=== PATIENT | female | born 1940 | race Caucasian/White ===

== ENCOUNTER 2016-05-21 16:50 | Inpatient (IN) | payer MEDICARE ==
[~2016-05-21] VITALS: Ht 160 cm; Wt 56.1 kg
--- NOTE | ~2016-05-21 | HEMODYNAMI ---
PATIENT:BRIJESH HAYES MEDICAL RECORD: [id number] : 36 [id number] ADMISSION DATE: 05/22/16 Generatedon:05/23/201612:37 Patient name: BRIJESH HAYES Patient #: [id number] : 1940 Date of study: 05/23/2016 Page: Of Hemodynamic Procedure Report Patient Data Patient Demographics Procedure consent was obtained First Name: BRIJESH Gender: Female Last Name: FREDDY : 1940 Patient #: [id number] Age: 75 year(s) Race: Unknown SSN: [id number] Additional ID: [id number] Contact details [address]: [address] [place] [address] [facility] State: [place] City: [place] Zip code: [address] Past Medical History Allergies Allergen Reaction Date Comments Reported Other allergy 05/23/2016 Trazadone Admission Admission Data Admission Date: 05/22/2016 Admission Time: 19:22 Arrival Date: 05/23/2016 Arrival Time: 0:00 Admit Source: Other Room #: D.2120 Height (in.): 62.99 BSA: 1.58 (m2) Height (cm.): 160 BMI: 21.88 (kg/m2) Weight (lbs.): 123.46 Weight (kg.): 56 Lab Results Lab Result Date: 05/23/2016 Lab Result Time: 0:00 Biochemistry Name Units Result Min Max BUN mg/dl 17 --(---*)-- 7 18 Creatinine mg/dl 1 --(--*-)-- 0.6 1.3 CBC Name Units Result Min Max Hemoglobin g/dl 15.8 --(--*-)-- 13.5 17.5 Procedure Procedure Types Cath Procedure Diagnostic Procedure LHC LHC w/Coronaries PCI Procedure Coronary Stent Initial x2 Miscellaneous Procedures Moderate Sedation up to 15 minutes Procedure Description Procedure Date Procedure Date: 05/23/2016 Procedure Start Time: 12:10 Procedure End Time: 12:36 Procedure Staff Name Function Harry Wahsburn MD Performing Physician Odilia Godoy RT Scrub Matteo Sanford RN Nurse Matteo Sanford RN Soa Integration Architect Angie Joel RT Monitor Procedure Data Cath Procedure Fluoroscopy Diagnostic fluoroscopy Total fluoroscopy Time: 9.3 time: 9.3 min min Diagnostic fluoroscopy Total fluoroscopy dose: 479 dose: 479 mGy mGy Contrast Material Contrast Material Type Amount (ml) Isovue 300 124 Entry Location Entry Primary Successful Side Size Upsize Upsize Entry Closure Kincaid ccessful Closure Location (Fr) 1 (Fr) 2 (Fr) Remarks Device Remarks Radial Right 6 Fr Mechanical TR artery Short Compression Estimated blood loss: 10 ml Diagnostic catheters Device Type Used For End Catheter Placement Terumo 5Fr Stockbridge 110cm Procedure catheter Procedure Complications No complications Procedure Medications Medication Administration Route Dosage Oxygen NC 2 l/min Lidocaine 2% added to field 20 Heparin Flush Bag added to field 2 bags (1000units/500ml NS) 0.9% NaCl I.V. 100 ml/hr Fentanyl I.V. 25 mcg Fentanyl I.V. 25 mcg Radial Cocktail I.A. 1 syringe (Verapomil 2mg/Nitro 400mcg/Heparin 1500units) Heparin Bolus I.V. 4000 units Integrilin (Bolus I.V. 5 ml 2mg/ml) Hemodynamics Rest BSA: 1.58 (m2) HGB: 15.8 (g/dl) O2 Consumption: Estimated: 159.54 (ml/min) O2 Co nsumption indexed: Estimated:100.97 (ml/min/m) Heart Rate: 98 (bpm) Snapshots Pre Cath Intra NCS Post Cath Vital Signs Time Heart Resp SPO2 etCO2 LD0xnfq NIBP (mmHg) Rhythm Pain Sedation Rate (ipm) (%) (mmHg) (mmHg) Status Level (bpm) 11:51:57 94 94 94 0 0 140/87(113) NSR 0 (11) 9(A) , No pain 11:56:07 97 25 94 0 0 146/81(119) NSR 0 (11) 9(A) , No pain 12:00:17 95 29 95 0 0 146/89(116) NSR 0 (11) 9(A) , No pain 12:04:29 93 26 96 0 0 138/81(113) NSR 0 (11) 9(A) , No pain 12:08:39 93 24 97 0 0 134/79(108) NSR 0 (11) 9(A) , No pain 12:12:51 92 24 98 0 0 122/68(94) NSR 0 (11) 9(A) , No pain 12:16:57 90 19 96 0 0 128/76(97) NSR 0 (11) 9(A) , No pain 12:21:06 89 21 97 0 0 124/72(95) NSR 0 (11) 9(A) , No pain 12:25:12 88 21 97 0 0 127/75(99) NSR 0 (11) 9(A) , No pain 12:29:20 88 21 97 0 0 126/74(95) NSR 0 (11) 9(A) , No pain 12:33:27 88 22 96 0 0 132/78(103) NSR 0 (11) 9(A) , No pain Medications Time Medication Route Dose Verified Delivered Reason Note s Effectiveness by by 12:00:32 Oxygen NC 2 l/min Harry Felipe used for Wu Sanford RN procedure 12:00:38 Lidocaine 2% added 20ml Harry Mcdonald for local to vial Wu Washburn MD anesthetic field 12:00:44 Heparin Flush added 2 bags Harry Mcdonald used for Bag to Wu Washburn MD procedure (1000units/500ml field NS) 12:00:54 0.9% NaCl I.V. 100 Harry Felipe Per physician ml/hr Wu Sanford RN 12:09:43 Fentanyl I.V. 25 mcg Harry Felipe for sedation Wu Sanford RN 12:13:03 Fentanyl I.V. 25 mcg Harry Felipe for sedation Wu Sanford RN 12:13:17 Radial Cocktail I.A. 1 Harry Mcdonald for (Verapomil syringe Wu Washburn MD vasodilation 2mg/Nitro 400mcg/Heparin 1500units) 12:15:41 Heparin Bolus I.V. 4000 Harry Felipe for veri fied units Wu Sanford RN anticoagulation with dr washburn 12:24:34 Integrilin I.V. 5 ml Harry Felipe for Wast ed 5 (Bolus 2mg/ml) Wu Sanford RN antiplatelet mls from therapy vial Procedure Log Time Note 11::52 Lab Result : BUN 17 mg/dl 11::52 Lab Result : Hemoglobin 15.8 g/dl ::52 Lab Result : Creatinine 1 mg/dl 11:32:09 Admit Source: Other 11:32:13 Patient Weight : 123.46 kg 11:32:22 Patient Height : 62.99 cm 11:32:39 Patient diabetic? Yes. 11:32:41 If diabetic: On Metformin? No 11:32:44 Is patient on blood thinner?Yes 11:32:47 ACC The patient was administered the following blood thiners within the last 24 hours: ACCPlavix 11:33:19 Diagnostic Cath status Elective 11:33:21 Matteo Sanford RN sent for patient. Start room use. 11:33:23 Time tracking: Regular hours ::31 Plan of Care:Hemodynamics will remain stable., Cardiac rhythm will remain stable., Comfort level will be maintained., Respiratory function will remain adequate., Patient/ family verbilizes understanding of procedure., Procedure tolerated without complication., Recovers from procedure without complications.. 11:33:57 H&P Date Dictated: 05/22/2016 Within 30 days and on chart.. 11:35:19 Arrival Date: 05/23/2016 12:00:00 AM 11:44:48 Patient received from Med II to CCL 1 Alert and oriented. Tansferred to table in Supine position. 11:44:49 Warm blankets applied, and evangelina hugger turned on for patient comfort. 11:44:50 Correct patient and procedure confirmed by team. 11:44:51 Signed procedure consent form obtained from patient. 11:44:52 ECG and BP/O2 sat monitors applied to patient. 11:50:28 Vital chart was started 11:50:29 Baseline sample Acquired. 11:50:39 Pre-procedure instructions explained to patient. 11:50:39 Pre-op teaching completed and patient verbalized understanding. 11:50:40 Family in waiting room. 11:50:42 Patient NPO since Midnight. 11:50:55 Patient allergic to Other allergyTrazadone 11:51:03 Is the patient allergic to Iodine/contrast media? No. 11:51:06 Was the patient premedicated? No 11:51:25 Previous problem with sedation/anesthesia? No ? 11:51:28 Snore? Yes 11:51:30 Sleep apnea? No 11:51:31 Deviated septum? No 11:51:32 Opens mouth fully? Yes 11:51:32 Sticks out tongue? Yes 11:51:48 Airway obstruction? Yes copd 11:51:53 Dentures? No ? 11:51:58 Pre procedure: right dorsailis pedis pulse 1+ Palpable, but thready & weak; easily obliterated 11:52:00 Patient pain scale 0/10 ?. 11:52:20 IV patent on arrival in right antecubital with 0.9% NaCl at [facility]. 11:52:24 Lab results completed and on chart. 11:52:29 Right groin area was prepped with chlora-prep and draped in sterile fashion 11:52:30 Alarms reviewed by R. N. 11:52:31 Sharps counted by scrub and verified by R.N. 11:53:07 Baseline sample Acquired. 12:00:32 Oxygen 2 l/min NC was given by Matteo Sanford RN; used for procedure; 12:00:38 Lidocaine 2% 20ml vial added to field was given by Harry Washburn MD; for local anesthetic; 12:00:44 Heparin Flush Bag (1000units/500ml NS) 2 bags added to field was given by Harry Washburn MD; used for procedure; 12:00:54 0.9% NaCl 100 ml/hr I.V. was given by Matteo Sanford RN; Per physician; 12:01:25 Physician arrived 12:02:18 Baseline sample Acquired. 12:02:51 IV Extension Set opened to sterile field. 12:02:59 Full Disclosure recording started 12:03:14 Use device set Radial Dx 12:03:16 Acist Syringe opened to sterile field. 12:03:16 Medline Cath Pack opened to sterile field. 12:03:17 Bag Decanter opened to sterile field. 12:03:17 Terumo 6Fr Slender Glidesheath opened to sterile field. 12:03:17 St Leonel 260cm J .035 wire opened to sterile field. 12:03:18 Acist Hand Control opened to sterile field. 12:03:18 Acist Manifold opened to sterile field. 12:03:19 Tegaderm 4 x 4 opened to sterile field. 12:07:38 Zero performed for pressure channel P1 12:08:00 ACC Patient presents with Symptoms unlikely to be ischemic CCS Anginal Class 3--Marked limitation of physical activity, angina occurs with ordinary activity.. 12:08:43 --------ALL STOP TIME OUT------ 12:08:46 Final Timeout: patient, procedure, and site verified with staff and physician. All members of the team are in agreement. 12:08:50 Right Radial & Right Groin site verified by team. 12:08:57 Physical assessment completed. ASA score P 3 - A patient with severe systemic disease as per Harry Washburn MD. 12:09:02 Sedation plan: IV Moderate Sedation Versed, Fentanyl 12::43 Fentanyl 25 mcg I.V. was given by Matteo Sanford RN; for sedation; 12:10:30 Procedure started. 12:10:36 Local anesthetic to right radial artery with Lidocaine 2% by Harry Washburn MD.INITIAL ACCESS ONLY 12:11:45 A 6 Fr Short sheath was inserted into the Right Radial artery 12:12:28 A Previstar 5Fr Stockbridge 110cm catheter was advanced over the wire and used for Procedure. 12:12:41 LV angiography performed. 12:13:03 Fentanyl 25 mcg I.V. was given by Matteo Sanford RN; for sedation; 12:13:04 EF : 30 % 12:13:10 LCA angiography performed. 12:13:17 Radial Cocktail (Verapomil 2mg/Nitro 400mcg/Heparin 1500units) 1 syringe I.A. was given by Harry Washburn MD; for vasodilation; 12:14:48 RCA angiography performed. 12:14:52 Catheter removed. 12:14:54 Proceeding to intervention. 12:14:57 Merit BasixCompak Inflation Kit opened to sterile field. 12:15:00 Alcaraz Whisper J 300cm 0.014 guide wire opened to sterile field. 12:15:13 ACC PCI Site: mLAD has 99% stenosis. 12:15:41 Heparin Bolus 4000 units I.V. was given by Matteo Sanford RN; for anticoagulation; verified with dr washburn 12:16:24 6 Fr EBU4 guide catheter was inserted over the wire 12:16:35 Whisper wire advanced. 12:16:37 Wire advanced across lesion. 12:18:03 Inflation Number: 1 A Alcaraz Ultra Rx 5.0 x 18 stent was prepped and advanced across the LMCA. The stent was deployed at 11 FATMATA for 0:10 (min:sec). 12:19:49 Stent catheter was removed intact over wire. 12:21:58 Inflation number: 1 A Enfield Sci Bent 2.5 X 15 balloon was prepped and advanced across the Mid LAD, then inflated to 13 FATMATA for 0:10 (min:sec). 12:22:08 Balloon removed over the wire. 12:24:34 Integrilin (Bolus 2mg/ml) 5 ml I.V. was given by Matteo Sanford RN; for antiplatelet therapy; Wasted 5 mls from vial 12:24:58 Stent catheter was removed intact over wire. 12:25:03 Balloon re-inserted over wire. 12:26:09 Inflation number: 2 The Enfield Sci Bent 2.5 X 15 balloon was reinflated across the Mid LAD, to 17 FATMATA for 0:10 (min:sec). 12:26:33 Inflation number: 3 The Enfield Sci Bent 2.5 X 15 balloon was reinflated across the Mid LAD, to 17 FATMATA for 0:10 (min:sec). 12:28:15 Balloon removed over the wire. 12:28:40 Inflation Number: 4 A Christ Salvationtronic Integrity 2.5 X 18 stent was prepped and advanced across the Mid LAD. The stent was deployed at 17 FATMATA for 0:10 (min:sec). 12:29:27 Wire removed. 12:29:28 Guide catheter removed. 12:32:50 Terumo TR Band Standard opened to sterile field. 12:33:11 Sheath removed intact; hemostasis achieved with Mechanical Compression to the Right Radial artery. 12:33:14 Procedure ended.(Physican Out) 12:33:47 Fluoroscopy time 09.30 minutes. 12:33:57 Fluoroscopy dose: 479 mGy 12:33:57 Flurop Dose total: 479 12:34:20 Contrast amount:Isovue 300 124ml. 12:34:23 Sharps counted by scrub and verified by R.N. 12:34:28 TR band inflated with 13cc of air. 12:34:30 Insertion/operative site no bleeding no hematoma. 12:34:43 Post right radial artery:stable 12:34:51 Post Procedure Pulses reassessed and unchanged 12:34:56 Post-procedure physical assessment completed. ASA score P 3 - A patient with severe systemic disease as per Harry Washburn MD. 12:35:01 Post procedure rhythm: unchanged. 12:35:06 Estimated blood loss: 10 ml 12:35:08 Post procedure instruction explained to patient.Patient verbalizes understanding. 12:35:13 Patient needs reinforcement of post procedure teaching. 12:35:26 Procedure type changed to Cath procedure, Diagnostic procedure, LHC, LHC w/Coronaries, PCI procedure, Coronary Stent Initial x2, Miscellaneous Procedures, Moderate Sedation up to 15 minutes 12:35:27 Procedure and supply charges have been captured, reviewed, submitted and are correct. 12:36:25 Procedure Complication : No complications 12:36:28 Vital chart was stopped 12:36:29 See physician's report for complete and final results. 12:36:33 Report given to [facility]. 12:36:37 Patient transfered to [facility] with Bed. 12:36:40 Procedure ended. 12:36:40 Full Disclosure recording stopped 12:36:43 End room use (Document Last) Intervention Summary Intervention Notes Time ActionType Lesion and Equipment Action# Pressure Duration Attributes Used 12:18:03 Place stent LMCA Alcaraz 1 11 00:10 Ultra Rx 5.0 x 18 stent 12:21:58 Inflate Mid LAD Enfield 1 13 00:10 balloon Sci Bent 2.5 X 15 balloon 12:26:09 Reinflate Mid LAD Enfield 2 17 00:10 balloon Sci Bent 2.5 X 15 balloon 12:26:33 Reinflate Mid LAD Enfield 3 17 00:10 balloon Sci Bent 2.5 X 15 balloon 12:28:40 [address] stent Mid LAD Medtronic 4 17 00:10 Integrity 2.5 X 18 stent Device Usage Item Name Manufacture Quantity Catalog Number Hospital Part Current Mini mal Lot# / Charge Number Stock Stock Serial# Code IV Hospcopper harbor 1 47499-08 955400 12277 201857 5 Extension Set Acist Acist 1 11127 936014 172030 492369 20 Syringe Medical Systems Inc Medline Cardinal 1 [id number] 966976 55959 046025 5 Cath Pack Health Bag Microtek 1 528696 17548 362936 5 Mobiotics Inc. Terumo 6Fr Terumo 1 [id number] 238237 539712 963580 [address] Le[address] St Leonel 1 049312 089867 115777 463047 30 260cm J .035 wire Acist Hand Acist 1 99195 706826 121893 198912 5 Control Medical Systems Inc Acist Acist 1 05003 676141 851487 292276 5 Manifold Medical Systems Inc Tegaderm 4 3M 1 1626W 566905 435416 466750 5 x 4 Terumo 5Fr Terumo 1 40-5013 323813 334625 832505 5 Stockbridge 110cm catheter Merit Merit 1 [id number] 921171 864986 039193 15 BasixCompak Medical Inflation Kit Alcaraz Alcaraz 1 [id number] 270357 748390 223923 5 Whisper J Vascular 300cm 0.014 guide wire Alcaraz Alcaraz 1 0130023-81 132231 568738 001994 5 [id number] Ultra Rx Vascular 5.0 x 18 stent Enfield Sci Enfield 1 [id number] 664321 406881 382093 1 [id number] ClearTax 2.5 X 15 balloon Medtronic Medtronic 1 [id number] 071436 418777 599864 5 [id number] Integrity 2.5 X 18 stent Terumo TR Terumo 1 [id number] 609836 707371 893716 40 Band Standard Signature Audit [place] Stage Time Signature Unsigned Intra-Procedure 05/23/2016 Angie Joel 12:37:11 PM RT(R) Signatures Monitor : Angie Joel Signature : RT Date : Time : [facility] [address] [place] [address]
[~2016-05-21 16:50] MED LIST: ADVAIR HFA [SP]12 GM INH; ALTACE5 MG PO; ASPIRIN81 MG PO; ATIVAN0.5 MG PO; BUSPAR5 MG PO; CITRATE OF MAG300 ML PO; CYMBALTA60 MG PO; DESYREL50 MG PO; DETROL LA4 MG PO; DUONEB 2.5-0.5 M3 ML UPD; GLUCOPHAGE500 MG PO; IPRAT-ALBUT 0.5-3 ML UPD; ISOSORBIDE DINI30 MG PO; KEPPRA250 MG PO; LANOXIN125 MCG PO; LEVAQUIN500 MG PO; MAG-OX 400 MG400 MG PO; METAMUCIL PACKE1 PKT PO; METOPROLOL TART50 MG PO; MILK OF MAGNESI30 ML PO; MIRALAX17 GM PO; MYLANTA LIQUID355 ML PO; NITROSTAT0.4 MG SL; NORCO 5/325 TAB1 TA1 PO; ONGLYZA5 MG PO; PHENERGAN25 M1 PO; PHOS-NAK PAC1 PACKET PO; PLAVIX75 MG PO; PRILOSEC20 MG PO; PROTONIX20 MG PO; REMERON15 MG PO; SPIRIVA18 MCG INH; SYMBICORT 16010.2 GM INH; TUDORZA PRESS400 MCG IH; TYLENOL 325 MG325 MG PO; VENTOLIN HFA18 GM INH; VITAMIN D3400 UNI1 PO; ZOCOR40 MG PO
[2016-05-21 18:08] LABS: BASOPHILS 0.4 % (0.0-2.0); EOSINOPHILS 1.5 % (0-7); HEMATOCRIT 45.7 % (36.0-48.0); HEMOGLOBIN 14.7 g/dL (12-16); IMMATURE GRANULOCYTES 0.3 % (0-5); LYMPHOCYTES 17.1 % (15-50); MCH 28.5 pg (26.0-34.0); MCHC 32.2 g/dL (31.0-37.0); MCV 88.6 fL (80.0-100.0); MEAN PLATELET VOLUME 10.1 fL (7.4-10.4); MONOCYTES 2.6 % (2-11); NEUTROPHILS 78.1 % (40-80); PLATELET COUNT 147 10x3/uL (130-400); RBC 5.16 10x6/uL (4.00-5.40); RDW 14.9 % (11.5-14.5); WBC 11.3 10x3/uL (4.8-10.8)
[2016-05-21 18:23] LABS: ALBUMIN 3.4 g/dL (3.4-5.0); ALKALINE PHOSPHATASE 75 U/L (46-116); ALT (SGPT) 67 U/L (10-68); BILIRUBIN - TOTAL 0.28 mg/dL (0.2-1.3); CALC OSMOLALITY 297 mosm/kg (275-300); CALCIUM 8.9 mg/dL (8.5-10.1); CARBON DIOXIDE 32.1 mmol/L (21.0-32.0); CHLORIDE - SERUM 104 mmol/L (98-107); CREATININE - SERUM 1.1 mg/dL (0.6-1.3); POTASSIUM - SERUM 4.8 mmol/L (3.5-5.1); PROTEIN - SERUM 7.2 g/dL (6.4-8.2); SODIUM 142 mmol/L (136-145); UREA NITROGEN 20 mg/dL (7-18); eGFR NON AFRICAN AMERICAN 51 mL/min (90-120)
[2016-05-21 18:24] LABS: GLUCOSE 314 mg/dL (74-106)
[2016-05-21 18:39] LABS: CHOL - HDL RATIO 4.3 ratio (2.3-4.1); CHOLESTEROL, TOTAL 159 mg/dL (0-200); CREATINE KINASE 282 UL (21-215); HDL CHOLESTEROL 37 mg/dL (32-96); LDL CHOLESTEROL 69 mg/dL (0-100); LDL-HDL RATIO 1.9 ratio (1.5-3.5); TRIGLYCERIDE 265 mg/dL (30-200); TROPONIN-I 2.642 ng/mL (0.000-0.060)
[2016-05-21 20:15] VITALS: BP 169/95
[2016-05-21 22:05] VITALS: BP 169/95; BMI 22.5
[2016-05-21] MEDS ORDERED: AMBIEN5 MG PO (22:41)
[2016-05-21] MEDS ORDERED: BUSPAR5 MG PO (22:42)
[2016-05-21] MEDS ORDERED: GLUCAGEN1 MG/VIAL IM (22:46)
--- NOTE | 2016-05-21 23:11 | NUR ---
PT ARRIVED VIA STRETCHER WIT DX NONSTEMI CT. PT DENIED ANY DISCOMFORT. SR PER CM HR 99. O2 2LNC. IV TO RAC SL. LUNGS DIMINISHED IN BASES BILAT. PT ALERT; ORIENTED TO PERSON, PLACE AND TIME. PEDRO. BED ALARM ON. ASSISTED PT TO BR. VOIDED SMALL AMOUNT OT URINE. ASSISTED BACK TO BED. PT UNSTEADY ON FEET. BED ALARM ON. PM MEDS GIVEN. ADMISSION ASSESSMENT, HISTORY AND HOME MED LIST COMPLETED. PT CURRENTLY RESTING WITH EYES CLOSED. RESP EVEN AND REGULAR. SR UP X2,CALL LIGHT WITHIN REACH AND BED ALARM ON. DOOR OPEN PER PT REQUEST.
[2016-05-22] VITALS (7 sets, daily range): BP systolic 118–198; BP diastolic 61–99
--- NOTE | 2016-05-22 00:55 | NUR ---
SHOTBLAST EQUIPMENT OPERATOR AT BEDSIDE FOR VS, NEEDS ADDRESSED. CALL LIGHT IN REACH. WILL CONT TO MONITOR.
--- NOTE | 2016-05-22 03:03 | NUR ---
PT RESTING WITH EYES CLOSED. RESP EVEN AND REGULAR. SR UP X2, CALL LIGHT WITHIN REACH. BED ALARM ON.
--- NOTE | 2016-05-22 04:12 | NUR ---
PT HAS C/O NOT FEELING WELL. VSS. HOB PLACED TO 40 DEGRESS. PT THEN STATES IT WAS EASIER TO BREATHE. SKIN SLIGHTLY CLAMMY. PT ALSO HAS C/O CHEST DISCOMFORT. REFUSES IV MORPHINE. WILL CONTINUE TO MONITOR. SR UP X2, CALL LIGHT WITHIN REACH AND BED ALARM ON.
--- NOTE | 2016-05-22 04:47 | NUR ---
PT STATES FEELS NAUSEATED. SKIN CLAMMY TO TOUCH. FSBS 191. PT DECLINES MORPHNE AND ZOFRAN AT THIS TIME. WILL CONTINUE TO MONITOR.
--- NOTE | 2016-05-22 06:06 | NUR ---
PT ALLOWED THIS STAFF MEMBER TO ADMINISTER ZOFRAN 4MG, MORPHINE 2MG SIVP. PT NOW STATES FEELS A LITTLE BETTER. NEEDS MET; WILL CONTINUE TO MONITOR.
[2016-05-22 13:36] LABS: BASOPHILS 0.3 % (0.0-2.0); EOSINOPHILS 0.2 % (0-7); HEMATOCRIT 49.6 % (36.0-48.0); HEMOGLOBIN 15.8 g/dL (12-16); IMMATURE GRANULOCYTES 0.2 % (0-5); LYMPHOCYTES 15.9 % (15-50); MCH 28.8 pg (26.0-34.0); MCHC 31.9 g/dL (31.0-37.0); MCV 90.3 fL (80.0-100.0); MEAN PLATELET VOLUME 10.3 fL (7.4-10.4); MONOCYTES 6.8 % (2-11); NEUTROPHILS 76.6 % (40-80); PLATELET COUNT 154 10x3/uL (130-400); RBC 5.49 10x6/uL (4.00-5.40); RDW 15.2 % (11.5-14.5); WBC 13.5 10x3/uL (4.8-10.8)
[2016-05-22 13:45] LABS: ANION GAP 12.5 mmol/L (8-16); CALCIUM 9.3 mg/dL (8.5-10.1); POTASSIUM - SERUM 4.5 mmol/L (3.5-5.1)
--- NOTE | 2016-05-22 16:48 | NUR ---
FSBS 284 HUMALOG 6 UNITS GIVEN SQ ABD
--- NOTE | 2016-05-22 19:11 | NUR ---
Patient Name: BRIJESH HAYES Admission Status: ER Accout number: [id number] Admission Date: 05-21-2016 : 1940 Admission Diagnosis: NSTEMI Attending: DENIS Current LOS: 1 Anticipated DC Date: 05-24-2016 Planned Disposition: [facility] Facility Primary Insurance: MEDICARE A & B Discharge Planning Comments: Patient resting and cm could not get patient to answer questions. CM called and spoke to patients daughter Suki Doyle who stated patient resides at [facility] and will return there at discharge. CM will assist with dc back to [facility] as needed. Treasury Assistant: La Tripathi RN, [facility] [phone] Is the patient Alert and Oriented? No 0 * How many steps to enter\exit or inside your home? 0 0 * PCP Snf Physician 0 * Pharmacy Snf Pharmacy 0 * Preadmission Environment [facility] Facility 0 * Facility Name [facility] 0 * ADLs Partial Dependent 0 * Partial ADLs (Assistance needed) Bathing Medication Management Toileting 0 * List name and contact numbers for known caregivers / representatives who currently or will assist patient after discharge: Suki Doyle - daughter - [phone] 0 * Community resources currently utilized None 0 * Additional services required to return to the preadmission environment? No 0 * Can the patient safely return to the preadmission environment? Yes 0 * Has this patient been hospitalized within the prior 30 days at any hospital? No
--- NOTE | 2016-05-22 19:15 | NUR ---
INITIAL ROUNDS MADE. PT RESTING WELL WITH EYES CLOSED, AWAKENED EASILY WHEN NAME CALLED. TELE SR. DENIES NEEDS AT THIS TIME. WILL CONT TO MONITOR.
--- NOTE | 2016-05-22 22:35 | NUR ---
WATCHING TV. NO NEEDS AT THIS TIME. CONT TO MONITOR.
--- NOTE | 2016-05-23 01:30 | NUR ---
PT INCONT URINE, COMPLETE LINEN CHANGE AND BED BATH COMPLETE.
--- NOTE | 2016-05-23 03:26 | NUR ---
LEVEL VIAL INSIDE GRINDER AT BEDSIDE FOR VS. NEEDS ADDRESSED, CALL LIGHT IN REACH. WILL CONT TO MONITOR.
[2016-05-23 03:49] VITALS: BP 135/66
--- NOTE | 2016-05-23 06:10 | NUR ---
LINEN CHANGE AND BATH COMPLETE, HIBICLENS FOR [facility] THIS AM.
[2016-05-23 08:17] VITALS: BP 182/82
--- NOTE | 2016-05-23 09:19 | NUR ---
TELEMETRY ST. HR 101. BED ALRM ON. CALL LIGHT IN REACH. WILL CONT. PLAN OF CARE.
--- NOTE | 2016-05-23 10:09 | CN ---
PATIENT NAME:BRIJESH HAYES MEDICAL RECORD: [id number] : [birth year] LOCATION:D. D.2120 ADMIT DATE: 05/22/16 ACCOUNT: [id number] CONSULTING PHYSICIAN: MIKO STEWART MD REFERRING PHYSICIAN: MIKO STEWART MD DATE OF CONSULTATION: 05/22/2016 DIAGNOSES: 1. Non-Q-wave myocardial infarction. 2. Coronary artery disease. 3. Previous percutaneous transluminal coronary angioplasty stent. 4. Hypertension. 5. Chronic obstructive pulmonary disease. 6. Cardiomyopathy. 7. Smoking history. 8. Hypertension. 9. History of colon cancer. HISTORY OF PRESENT ILLNESS: Mrs. Hayes presents from the halfway with chest pain. She is ruled in for a non-Q-wave myocardial infarction with her troponin being 2.0. She has ST-T abnormalities laterally in her EKG. She has a history of coronary artery disease, previous cardiac stent a number of years ago. She has done well from a cardiac standpoint until just the day of admission, that is when she began having chest pain. She had chest pain last night as well. She is pain free right now. PHYSICAL EXAMINATION: GENERAL APPEARANCE: Well-nourished, well-developed, appears stated age. Level of distress, comfortable. PSYCHIATRIC: Mental status, alert, normal affect. Orientation, oriented to time, place and person. EYES: Lids and conjunctiva, noninjected. No discharge, no pallor. ENT: Lips, teeth, gums, normal dentition. Oropharynx, no cyanosis, no pallor. NECK: Carotid arteries, bilateral normal upstroke, no bruits, no thrills. JUGULAR VEINS: No jugular venous pressure or distention. CERVICAL LYMPH NODES: Nontender, nonenlarged. THYROID: Not enlarged. Nontender. No nodules. LUNGS: Respiratory effort, unlabored. CHEST: Normal curvature. No thoracic deformity. No chest wall tenderness. Percussion, resonant. Auscultation, clear. No wheezes, no rales, no rhonchi. CARDIOVASCULAR: Precordial exam, nondisplaced. No heaves or pericardial thrills. Rate and rhythm, regular. Heart sounds, normal S1, normal S2. No S3, no gallop, no rub. Systolic murmur, not heard. Diastolic murmur, not heard. EXTREMITIES: No cyanosis, no edema. Peripheral pulses, full and equal in all extremities, except as noted. No bruits appreciated. ABDOMEN: Soft, nondistended. Normal aorta. No bruit. Nontender. No masses. Liver, nontender, no hepatomegaly. Spleen, nontender, no splenomegaly. MUSCULOSKELETAL: No joint tenderness. No joint swelling. No erythema. NEUROLOGICAL: Normal gait, normal strength, normal tone. SKIN: Warm and dry. REVIEW OF SYSTEMS: The patient reports easy bruising but reports no swollen glands. The patient reports no fever, no night sweats, no significant weight gain, no significant weight loss. No significant exercise tolerance. The patient reports no dry eyes, no irritation, no vision change. Patient reports CONSULT REPORT [id number] BRIJESH HAYES no difficulty hearing and no ear pain. Patient reports no frequent nose bleeds or nose and sinus problems. Patient reports on arm pain on exertion. No shortness of breath while lying down. No history of heart murmur. Patient reports no cough, no wheezing or coughing up blood. Patient reports no abdominal pain, no vomiting. Normal appetite. No diarrhea and not vomiting blood. No nausea and no constipation. Patient reports no incontinence. No difficulty urinating. No hematuria. No increased frequency. Patient reports no muscle aches. No weakness, no arthralgias, no back pain. No swelling of the extremities. Patient reports no abnormal mole, no jaundice, no rashes. Reports no loss of consciousness. No weakness and no numbness. No seizures, dizziness, or headaches. The patient reports no depression, no sleep disturbance, feeling safe in a relationship and no alcohol abuse. Patient reports on fatigue. Reports no runny nose or sinus pressure. No itching, no hives, and no frequent sneezing. OVERALL IMPRESSION: Non-Q-wave myocardial infarction with continued chest pain. At this time, we will optimize medical management with increasing her beta blockade. Continue statin. Continue aspirin, Plavix, most likely proceed with coronary angiography in the a.m. Further care depends upon findings of the angiography. TRANSINT:[id number] Voice Confirmation ID: [id number] DOCUMENT ID: [id number] MIKO STEWART MD at 1009 CC: [id number] DICTATION DATE: 05/22/16 1227 STEREO COMPILER: 05/22/16 1520 ADM IN [facility] [address] [place] [address]
--- NOTE | 2016-05-23 11:51 | NUR ---
PRE-OPS GIVEN. TO DRAMATIC READER BY BED.
[2016-05-23 12:31] VITALS: BP 137/70
--- NOTE | 2016-05-23 12:58 | NUR ---
BACK FROM HONEYCOMB DECAPPER. VS WNL. RIGHT WRIST STABLE WITH TR BAND INTACT. MISAEL RG.
[2016-05-23 13:49] VITALS: Ht 160 cm; Wt 56.1 kg
[2016-05-23 15:55] VITALS: BP 147/83
--- NOTE | 2016-05-23 18:35 | NUR ---
TR BAND DCD WITHOUT BLEEDING OR HEMATOMA NOTED.
--- NOTE | 2016-05-23 19:15 | NUR ---
INITIAL ROUNDS MADE. PT LYING IN BED RESTING WELL WITH EYES CLOSED, AWAKENS EASILY WHEN NAME CALLED. DENIES NEEDS AT THIS TIME. RIGHT WRIST STABLE. VSS. CONT TO MONITOR.
[2016-05-23 20:00] VITALS: BP 155/74
[2016-05-24] VITALS: BP 129/63
--- NOTE | 2016-05-24 00:26 | NUR ---
HEAD SILVERMAN AT BEDSIDE FOR VS, NEEDS ADDRESSED. CALL LIGHT IN REACH. WILL CONT TO MONITOR.
[2016-05-24 04:00] VITALS: BP 122/62
[2016-05-24 08:08] VITALS: BP 144/70
--- NOTE | 2016-05-24 09:45 | NUR ---
TELEMETRY SR. BED ALARM ON. CALL LIGHT IN REACH. WILL CONT. PLAN OF CARE.
--- NOTE | 2016-05-24 11:24 | NUR ---
Patient Name: BRIJESH HAYES Encounter No: [id number] : 1940 Primary Insurance: MEDICARE A & B Anticipated DC Date: 05-24-2016 Planned Disposition: Alf Facility External Planned Provider: [facility] MEDICAID BED DCP follow-up note: CM PROVIDED CAN DISCUSSED IMPORTANT MESSAGE FROM MEDICARE. PT ORIENTED TO SELF ONLY AND IS UNAWARE OF HER DISCHARGE PLAN OR WHERE SHE IS GOING. CM CALLED Annia Doyle - daughter - [phone], WHO IS AWARE OF DISCHARGE AND HAS CALLED [facility] TO LET THEM KNOW. ANNIA IS UNABLE TO HOUSEKEEPING ASSISTANT PT SHE IS UNABLE TO DRIVE AND REQUESTED VAN TO HOUSEKEEPING ASSISTANT PT TODAY. RN BONNY BOOKER IS IN PROCESS OF MAKING THOSE ARRANGEMENTS. NURSE REPORT TO BE CALLED TO [facility], , [facility] TO ARRANGE VAN HOUSEKEEPING ASSISTANT TODAY. CM TO FOLLOW AND ASSIST IF NEEDED. Jomar Denney, CASE MANAGEMENT
[2016-05-24 12:03] VITALS: BP 148/81
--- NOTE | 2016-05-24 12:48 | NUR ---
IV AND TELEMETRY DCD. DC PLANS CALLED TO [facility] RN. UNDERSTANDING VOICED.
--- NOTE | 2016-05-24 15:42 | NUR ---
ESCORTED TO [place] [facility] BY W/C.
--- NOTE | 2016-06-07 14:37 | DS ---
PATIENT:BRIJESH HAYES :36 MEDICAL RECORD: [id number] DISCHARGE SUMMARY ADMISSION DATE: 05/22/16 DISCHARGE DATE: 05/24/16 DIAGNOSES: 1. Non-Q-wave myocardial infarction. 2. Coronary artery disease. 3. Percutaneous transluminal coronary angioplasty stent, left main and left anterior descending this admission. 4. Hypertension. 5. Hyperlipidemia. 6. Paroxysmal atrial fibrillation. HOSPITAL COURSE: Mrs. Hayes presents with unstable angina, non-Q-wave myocardial infarction, underwent cardiac catheterization revealing 99% stenosis to the LAD, underwent successful PTCA stent of this territory with no further anginal symptomatology. She was discharged home with the addition of aspirin, Plavix, and metoprolol to her medical regimen. She will follow up with [facility] in [facility] month. TRANSINT:[id number] Voice Confirmation ID: [id number] DOCUMENT ID: [id number] MIKO STEWART MD at 1437 CC: [id number] DICTATION DATE: 05/24/16 0952 MAIL ORDER SORTER: 05/24/16 1252 DIS IN 05/24/16 [id number] [place] [address]
--- NOTE | 2016-06-07 14:37 | OP ---
PATIENT NAME: BRIJESH HAYES MEDICAL RECORD: [id number] :36 LOCATION:D.M2 D.2120 ADMISSION DATE:05/22/16 SURGEON: MIKO STEWART MD DATE OF OPERATION: 05/23/2016 PROCEDURES: 1. PTCA stent left main. 2. PTCA stent LAD. 3. Left heart catheterization. 4. Selective coronary angiography. 5. Left ventriculogram. INDICATION: Non-Q-wave myocardial infarction, angina. PROCEDURE IN DETAIL: After informed consent was obtained and after detailed explanation of risks, benefits as well as alternative therapies, the patient elected to proceed with angiogram and angioplasty. The right radial area was prepped and draped in normal sterile fashion. The right radial artery was cannulated via modified Seldinger technique with placement of 6-Yi sheath. All catheters exchanged through this sheath. FINDINGS: Left ventriculogram was performed in standard 30-degree ATKINSON view reveals global hypokinesis throughout all segments. Overall ejection fraction is 30%. SELECTIVE CORONARY ANGIOGRAPHY: 1. Left main showed no significant angiographic disease. 2. Left anterior descending has a 99% stenosis in the mid vessel. 3. The left circumflex has chronic total occlusion of the first obtuse marginal circumflex itself, however, with only moderate irregularities. 4. The right coronary has a total occlusion in the mid vessel that is chronic. The distal right coronary fills via left to left and right to right collaterals. PTCA STENT OF THE LEFT ANTERIOR DESCENDING: With the introduction of the guide, there was a severe guide dissection, this required stenting of the left main with 5.0 x 18 Ultra stent. We then turned our attention to the left anterior descending after this was stabilized we stented the left anterior descending with a 2.5 x 18 mm Integrity. Result was 0% residual stenosis. OVERALL IMPRESSION: Successful percutaneous transluminal coronary angioplasty stent of the left anterior descending going from 99% initial stenosis to 0% residual. TRANSINT:[id number] Voice Confirmation ID: [id number] DOCUMENT ID: [id number] MIKO STEWART MD at 1437 CC: [id number] DICTATION DATE: 05/23/16 1235 MERCHANDISE PICKUP/RECEIVING ASSOCIATE: 05/24/16 0004 DIS IN 05/24/16 [place] [address]
== END 2016-05-24 15:44 | DRG 249 ==
LOC: D.ER 16:50 → D.M2 19:27 → OBSVTIME 19:27 → D.M2 05-22 19:22
PROVIDERS: Family Medicine; ADMIT Internal Medicine Interventional Cardiology
PROC: 4A023N7 Measurement of Cardiac Sampling and Pressure, Left Heart, Percutaneous Approach (ICD-10-PCS; 2016-05-23)
PROC: B2111ZZ Fluoroscopy of Multiple Coronary Arteries using Low Osmolar Contrast (ICD-10-PCS; 2016-05-23)
PROC: B2151ZZ Fluoroscopy of Left Heart using Low Osmolar Contrast (ICD-10-PCS; 2016-05-23)
PROC: 02713EZ Dilation of Coronary Artery, Two Arteries with Two Intraluminal Devices, Percutaneous Approach (ICD-10-PCS; principal; 2016-05-23 08:30)
DX: I21.4 Non-ST elevation (NSTEMI) myocardial infarction (principal); I42.9 Cardiomyopathy, unspecified; I25.10 Atherosclerotic heart disease of native coronary artery without angina pectoris; I10 Essential (primary) hypertension; J44.9 Chronic obstructive pulmonary disease, unspecified; E78.5 Hyperlipidemia, unspecified; I48.0 Paroxysmal atrial fibrillation; Z95.5 Presence of coronary angioplasty implant and graft; Z85.038 Personal history of other malignant neoplasm of large intestine

== ENCOUNTER 2016-05-24 21:55 | Inpatient (IN) | payer MEDICARE ==
[~2016-05-24] VITALS: Ht 160 cm; Wt 58.5 kg
[~2016-05-24 21:55] MED LIST changes: +AMBIEN5 MG PO; +GLUCAGEN1 MG/VIAL IM
[2016-05-24 23:13] LABS: BASOPHILS 0.2 % (0.0-2.0); EOSINOPHILS 0 % (0-7); HEMATOCRIT 44.4 % (36.0-48.0); HEMOGLOBIN 13.6 g/dL (12-16); IMMATURE GRANULOCYTES 0.2 % (0-5); LYMPHOCYTES 17.8 % (15-50); MCH 28.7 pg (26.0-34.0); MCHC 30.6 g/dL (31.0-37.0); MCV 93.7 fL (80.0-100.0); MEAN PLATELET VOLUME 10.9 fL (7.4-10.4); MONOCYTES 7.9 % (2-11); NEUTROPHILS 73.9 % (40-80); PLATELET COUNT 155 10x3/uL (130-400); RBC 4.74 10x6/uL (4.00-5.40); WBC 12.9 10x3/uL (4.8-10.8)
[2016-05-24 23:28] LABS: UDS - AMPHET NEGATIVE QUAL (NEGATIVE); UDS - BARB NEGATIVE QUAL (NEGATIVE); UDS - BENZO NEGATIVE QUAL (NEGATIVE); UDS - COCAINE NEGATIVE QUAL (NEGATIVE); UDS - METH NEGATIVE QUAL (NEGATIVE); UDS - OPIATE NEGATIVE QUAL (NEGATIVE); UDS - PCP NEGATIVE QUAL (NEGATIVE); UDS - THC NEGATIVE QUAL (NEGATIVE)
[2016-05-24 23:34] LABS: APPEARANCE CLOUDY (CLEAR); BILIRUBIN NEGATIVE (NEGATIVE); COLOR YELLOW (YELLOW); GLUCOSE 1000 mg/dL (NEGATIVE); KETONE NEGATIVE (NEGATIVE); LEUKOCYTE ESTERASE TRACE (NEGATIVE); NITRITE NEGATIVE (NEGATIVE); PROTEIN 3+ mg/dL (NEGATIVE); SPECIFIC GRAVITY 1.015 (1.005-1.020); UROBILINOGEN NORMAL (NORMAL)
[2016-05-24 23:43] LABS: AMORPHOUS SEDIMENT >1+ /lpf (NONE SEEN); BACTERIA MANY /hpf (NONE SEEN); EPITHELIAL CELLS 0-5 /hpf (0-5); GRANULAR CAST 0-5 /lpf (NONE SEEN); HYALINE CAST 0-5 /lpf (NONE SEEN); RED CELLS - URINE 0-5 /hpf (0-5)
[2016-05-24 23:49] LABS: ALBUMIN 3.2 g/dL (3.4-5.0); ALKALINE PHOSPHATASE 71 U/L (46-116); ALT (SGPT) 121 U/L (10-68); BILIRUBIN - TOTAL 0.73 mg/dL (0.2-1.3); CALC OSMOLALITY 320 mosm/kg (275-300); CALCIUM 9.1 mg/dL (8.5-10.1); CARBON DIOXIDE 32.1 mmol/L (21.0-32.0); CHLORIDE - SERUM 112 mmol/L (98-107); CREATININE - SERUM 1.2 mg/dL (0.6-1.3); GLUCOSE 315 mg/dL (74-106); PROTEIN - SERUM 7.6 g/dL (6.4-8.2); SODIUM 152 mmol/L (136-145); UREA NITROGEN 32 mg/dL (7-18); eGFR NON AFRICAN AMERICAN 46 mL/min (90-120)
[2016-05-25 00:12] LABS: CREATINE KINASE 479 UL (21-215); MAGNESIUM - SERUM 2.1 mg/dL (1.8-2.4); PRO BNP 28096 pg/mL (0-450)
[2016-05-25 00:18] LABS: CKMB 2.4 U/L (0.0-3.6); TROPONIN-I 29.844 ng/mL (0.000-0.060)
--- NOTE | 2016-05-25 01:47 | NUR ---
RECEIVED TO ROOM 2102 ALERT,, BUT DISORIENTED 75 Y/O FEMALE SEEN BY DR NEW FOR AMS, AND HYPOXI VIA STRETCHER FROM ER. INCONT OF URINE, KARLIE CARE GIVEN, AUSTIN WELL. LINEN CHANGE DONE. AUSTIN WELL. TELEMETRY SHOWING HR [address] WITH PVCS PER DIRECTOR OF SCIENTIFIC RESEARCH. BED ALARM ON AND WORKING FOR SAFETY. YELLOW BAND ON WRIST AND YELLOW STAR ON DOOR.NON SKID SOCKS IN USE. SR UP X2, C/L IN REACH. HOB UP CONTINUE TO MONITOR. IP NOT ACCESSED. LEFT HAND SL INTACT WITH NO R/S NOTED AT SITE.
[2016-05-25 01:50] LABS: DIGOXIN 0.99 ng/mL (0.90-2.00)
[2016-05-25 02:11] VITALS: BP 151/86; BMI 23.0
[2016-05-25 04:00] VITALS: BP 155/90
--- NOTE | 2016-05-25 07:56 | NUR ---
ANNIA VELAZQUEZ, DAUGHTER (POA) TO CALL TO CHECK ON HER. SHE ALSO STATES THAT SHE IS A DNR. LUZ AND KEIKO BOWLING CONFIRMED THIS WITH HER.
--- NOTE | 2016-05-25 08:12 | NUR ---
AM ROUNDING DONE WITH PATIENT CONFUSED. SHE KEEPS ASKING FOR HELP REPEARTLY BUT WHEN ASKED WHAT CAN I DO TO HELP, SHE JUST KEPTS REPEATING SHE NEEDS HELP. SALINE LOCK SEEN TO LEFT YASMINE, ON HEART MONTITOR SHOWING ST W OCC PVC'S, HR 105. ON 2L PER NC. BILATERAL SCD'S IN USE CORRECTLY. BED ALARM IS ON AND IN USE.
[2016-05-25 08:32] VITALS: BP 154/87
[2016-05-25 12:38] VITALS: Ht 160 cm; Wt 58.5 kg
--- NOTE | 2016-05-25 13:00 | NUR ---
1258-MISSED HER DAUGHTERS PHONECALL, CALL AND LEFT VOICEMAIL THAT I JUST GAVE HER SOME LASIX AND WILL BE PLACING A GRADY CATH.
[2016-05-25 13:41] VITALS: BP 154/87
--- NOTE | 2016-05-25 14:13 | NUR ---
1415-USING STERILE TECHNIQUE, GRADY CATH PLACED WITH RETURN OF 250 CC CLEAR URINE. PATIENT WAS INCON. OF URINE AGAIN AND COMPLETE LINEN CHANGE.
--- NOTE | 2016-05-25 16:21 | NUR ---
FSBS RESULT OF 436. WILL GIVE THE 12 U OF INSULIN ORDERED. CALLED DR NEW OFFICE, SPOKE WITH DR NEW AND RECEIVED NEW ORDER FOR LANTUS 20 U AT BEDTIME.
[2016-05-25 17:04] VITALS: BP 158/88
--- NOTE | 2016-05-25 17:54 | NUR ---
STILL EATING SUPPER, DENIES NEEDS AT PRESENT TIME. WILL CONTINUE TO MONITOR.
--- NOTE | 2016-05-25 19:40 | NUR ---
Received resting quietly in bed, bed alarm on, Oxygen on @2L/min, respirations easy and regular at this time, SCDs on, oriented to person and place, no voiced complaints, left hand PIV is SL.
[2016-05-25 21:17] VITALS: BP 165/87
--- NOTE | 2016-05-25 21:39 | NUR ---
Paged , patient's temp elevated = 101.3 has no PRNs to reduce fever.
--- NOTE | 2016-05-25 21:50 | NUR ---
Given 10 Units regular sliding scale insulin for BG = 359. Also given 20 Units Lantus insulin per routine orders. Feels warm to touch, only has sheet on, took blankets off due to elevated Temp. Awaiting return call from .
--- NOTE | 2016-05-25 22:04 | NUR ---
Received call back from , given Tylenol 650mg supp as patient is drowsy and somewhat lethargic. Awaiting results.
--- NOTE | 2016-05-25 22:37 | NUR ---
Patient's daughter, Suki Doyle called and given update on patient's condition. Requested to be called during the night if condition worsens.
[2016-05-26] VITALS (8 sets, daily range): BP systolic 84–157; BP diastolic 54–91
--- NOTE | 2016-05-26 | NUR ---
Temperature now is 100.0 is coming down. Rocephin IVPB will be hung soon. Will recheck temp. in two hours and repeat Tylenol supp if needed. Patient is sleeping at this time, respirations easy and regular. special machine stitcher remains on with rhythm ST, HR = 120/min.
--- NOTE | 2016-05-26 04:41 | NUR ---
Given Tylenol supp for generalized pain, moaning, and moving restlessly in bed, and also for elevated Temp = 100.6 axillary. Unable to obtain oral Temp as patient is breathing through mouth, drowsy but arousable, opens eyes in response to calling her name, shallow respirations, R = 32/min, HR = 140/min, BP = 157/86, lethargic at times, arms cool to touch but chest warm to touch and slightly moist. BG checked = 302. Temp rechecked for validation 100.4 axillary. Will continue to monitor.
[2016-05-26 06:40] LABS: BASOPHILS 0.1 % (0.0-2.0); EOSINOPHILS 0.1 % (0-7); IMMATURE GRANULOCYTES 0.5 % (0-5); LYMPHOCYTES 17.8 % (15-50); MCH 28.6 pg (26.0-34.0); MCHC 30.3 g/dL (31.0-37.0); MCV 94.6 fL (80.0-100.0); MEAN PLATELET VOLUME 12.2 fL (7.4-10.4); MONOCYTES 7.7 % (2-11); NEUTROPHILS 73.8 % (40-80); RDW 16.4 % (11.5-14.5)
[2016-05-26 06:53] LABS: HEMOGLOBIN A1C 8.2 % (4.8-6.0)
--- NOTE | 2016-05-26 06:57 | NUR ---
No change from suppository given, Temp remains elevated @ 100.5 axillary, arms feel cool to touch and chest feels warm and moist. Will continue to monitor.
[2016-05-26 07:02] LABS: ALBUMIN 3.6 g/dL (3.4-5.0); ANION GAP 19.8 mmol/L (8-16); BILIRUBIN - TOTAL 0.89 mg/dL (0.2-1.3); CALCIUM 9.4 mg/dL (8.5-10.1); CARBON DIOXIDE 31.6 mmol/L (21.0-32.0); CHOL - HDL RATIO 6.2 ratio (2.3-4.1); POTASSIUM - SERUM 3.4 mmol/L (3.5-5.1); PROTEIN - SERUM 9.2 g/dL (6.4-8.2); THYROID STIMULATING HORMONE 0.49 uIU/mL (0.36-3.74)
[2016-05-26 07:08] LABS: CREATININE - SERUM 1.9 mg/dL (0.6-1.3)
[2016-05-26 07:10] LABS: HEMATOCRIT 57.5 % (36.0-48.0); HEMOGLOBIN 17.4 g/dL (12-16); PLATELET COUNT 230 10x3/uL (130-400); RBC 6.08 10x6/uL (4.00-5.40); WBC 17.1 10x3/uL (4.8-10.8)
--- NOTE | 2016-05-26 08:03 | NUR ---
5496- CALL PLACED TO DR NEW WITH FOLLOW VS. T 100 AX, R040, P 125, B/P 153/86. WBC IS UP THIS AM TO 17.1. DNR CODE STATUS, SADIA HOWELL RN MADE AWARE OF SITUATION. ON HEART MONITOR SHOWING ST, HR 150. LEFT HAND SEEN WITH SALINE LOCK. FOELY CATH PATENT, PLACED YESTERDAY. WILL CONTINUE TO MONITOR. 1991-DR NEW TO CALL BACK WITH NEW ORDERS.
--- NOTE | 2016-05-26 10:17 | NUR ---
DR. NEW HERE TO SEE PATIENT. CONSULT FOR DR. GREEN PLACED. WILL CONTINUE TO MONITOR.
--- NOTE | 2016-05-26 12:23 | NUR ---
TECH MAKING NOON ROUNDS WITH BLOOD PRESSURE LOW. KENA PRESSURE TAKEN MYSELF IS 84/54. CALLED DR NEW OFFICE AND WAS TOLD HE WAS IN THE THE OFFICE. PAGED HIM, AWAITING CALL BACK.
--- NOTE | 2016-05-26 12:32 | NUR ---
500 CC FLUID BOLUS STARTED.
--- NOTE | 2016-05-26 12:46 | NUR ---
1229-DAUGHTER ANNIA TO CALL AND MADE AWARE OF THE SITUATION. I TOLD HER THAT I WILL UPDATE HER OFTEN.
--- NOTE | 2016-05-26 13:04 | NUR ---
B/P NOW 109/60
--- NOTE | 2016-05-26 15:48 | NUR ---
2530-CHECKED ON PATIENT FOR ROUNDING. B/P IS 98/62 Olamide RIZO 38. PATIENT WILL NOT RESPOND TO ME EXCEPT WHEN PINCHING HER TOE (SHE WILL PULL BACK). PUPILS ARE NON REACTIVE TO LIGHT, CALL PLACED TO DR NEW. CALLED ANNIA VELAZQUEZ, DAUGHTER, AND TALKED TO HER AND TO HER . 515-DR NEW TO CALL BACK AND NO NEW ORDERS.
--- NOTE | 2016-05-26 16:19 | NUR ---
PATIENT IS STARTING TO HAVE SOME PERIODS OF APNEA. MOANING AT TIMES, LEGS ARE STARTING TO MOTTLE. URINE TO GRADY CATH IS CONCENTRATED. WILL CONTINUE TO MONITOR.
--- NOTE | 2016-05-26 16:24 | NUR ---
O2 NC PLACED IN PATIENTS MOUTH SHE IS A MOUTH BREATHER. WILL CONTINUE TO MONITOR.
--- NOTE | 2016-05-26 16:51 | NUR ---
DR GREEN HERE TO SEE PATIENT. NEW ORDERS RECEIVED AND NOTED. 1L BOLUS OF NS STARTED ORDERED. PAGE INTO RT (THOMPSON) FOR STAT BLOOD GASES. SHE IS ALSO TO BE ON A NON REBREATHER AND BIPAP.
--- NOTE | 2016-05-26 17:28 | NUR ---
1710-THOMPSON WITH RT TO PLACE NON REBREATHER ON PATIENT. BIPAP IN ROOM FOR PRN USE. PUPILS ARE NOW SLUGGISH.
--- NOTE | 2016-05-26 17:56 | NUR ---
FAMILY AT BEDSIDE, PATIENT IS MOANING AND MOVING HER ARMS SOME. QUESTIONS ANSWERED TO THE BEST OF MY ABILITY. WILL CONTINUE TO MONITOR.
--- NOTE | 2016-05-26 20:26 | NUR ---
PT HAS VERY POOR PROGNOSIS. SHIFT ASSESSMENT COMPLETED. PT STRUGGLING TO BREATHE WITH NONREBREATHER MASK IN PLACE @15L. O2 SAT 78%. PAGED AND REC'D ORDER FOR PRN MORPHINE IV FOR AIR HUNGER. DAUGHTER AT BEDSIDE AND UNDERSTANDS HER MOTHERS SITUATION AND WOULD LIKE HER TO IN [place]. WILL ADMINISTER MORPHINE AND CTM CLOSELY.
--- NOTE | 2016-05-26 22:06 | NUR ---
AT BEDSIDE TO PRONOUCE.
--- NOTE | 2016-05-26 22:30 | NUR ---
POST MORDOM CARE COMPLETED. GRADY REMOVED WITH BULB FULLY INTACT. L.FA PIV D/C WITH CATHETER TIP FULLY INTACT. RECORD OF SHEET COMPLETED AND ALL CALLS MADE PER PROTOCOL TO WEB PRODUCTION ARTIST/ HOME/CHRISTINE.
--- NOTE | 2016-05-30 08:08 | DS ---
PATIENT:BRIJESH HAYES :36 MEDICAL RECORD: [id number] DISCHARGE SUMMARY ADMISSION DATE: 05/25/16 DISCHARGE DATE: 05/26/16 DATE OF ADMISSION: 05/25/2016. DATE OF EXPIRATION: 05/26/2016. DISCHARGE DIAGNOSES: 1. Sepsis due to urinary tract infection and pneumonia. 2. Chronic obstructive pulmonary disease. 3. Coronary artery disease with recent non-Q-wave myocardial infarction, status post PTCA and placement of stents On 05/23/2016. 4. Acute renal failure. 5. Alzheimer's dementia. 6. Diabetes type 2. 7. Dyslipidemia. 8. Osteoarthritis. 9. Seizures. 10. Anxiety/depression. CONSULTANTS: Dr. Washburn and Dr. Lieberman. BRIEF HISTORY AND COURSE IN THE [facility]: This is a 75-year-old white female from [facility] who was admitted via the Emergency Room because of altered mental status, hypoxia with oxygen saturations dropping to 86% in the long term. This is associated with sweating, tachycardia. The patient had labs drawn in the Emergency Room, which showed a sodium of 152, potassium 4, chloride 112, CO2 of 32, BUN 32, creatinine 1.2, and glucose of 315. Troponin was 29.8 and proBNP was 28,096. CBC showed a WBC count of 12.9, hemoglobin 13.6, hematocrit 44.4, and platelet count of 155. Urinalysis showed 10-25 urine wbc with many bacteria. The patient was initially started on Rocephin. Dr. Washburn was consulted. The patient had no chest pain and no acute changes in her EKG. The troponin was elevated because of her recent procedure. Recommendation was to continue antibiotics and continue medical management. Nothing new to add from a cardiovascular standpoint. On 05/26, patient's condition worsened with an increase in her temperature, although chest x-ray on 05/26 showed improvement of bilateral interstitial prominence. The patient was more confused and less responsive. She was feverish. She was on oxygen. Her pain was under control, but her WBC count went up to 17.1. Her fever was 100.5. Her Rocephin was discontinued and she was started on Maxipime and Zithromax. The patient was a DNR. Her BUN was 36 and creatinine 1.9. Her blood sugar was 302 and her Lantus was increased. She was referred to Dr. Lieberman. The patient's condition continued to worsen. She became hypotensive and more short of breath and she was given a bolus of IV fluids. Her Lasix was discontinued. Vancomycin was added. The patient did not respond and the daughter informed about her poor prognosis. She was placed on a nonrebreather mask and she was also given IV morphine for air hunger. The patient with her daughter at bedside. Dr. Vega pronounced it. TRANSINT:[id number] Voice Confirmation ID: [id number] DOCUMENT ID: [id number] DISCHARGE SUMMARY REPORT [id number] BRIJESH HAYES FERDINAND MD at 0808 CC: [id number] DICTATION DATE: 05/27/16 1230 VAULT CLERK: 05/28/16 0240 DIS IN 05/26/16 [id number] [place] [address]
== END 2016-05-26 23:50 | DRG 871 ==
LOC: D.ER 21:55 → D.M2 05-25 00:42
PROVIDERS: Emergency Medicine; ADMIT Family Medicine
PROC: 0T9B70Z Drainage of Bladder with Drainage Device, Via Natural or Artificial Opening (ICD-10-PCS; principal; 2016-05-25)
DX: A41.9 Sepsis, unspecified organism (principal); N17.0 Acute kidney failure with tubular necrosis; I22.2 Subsequent non-ST elevation (NSTEMI) myocardial infarction; I21.4 Non-ST elevation (NSTEMI) myocardial infarction; I50.21 Acute systolic (congestive) heart failure; N39.0 Urinary tract infection, site not specified; E87.0 Hyperosmolality and hypernatremia; I42.9 Cardiomyopathy, unspecified; G72.81 Critical illness myopathy; R41.0 Disorientation, unspecified; I25.10 Atherosclerotic heart disease of native coronary artery without angina pectoris; G30.9 Alzheimer's disease, unspecified; F02.80 Dementia in other diseases classified elsewhere, unspecified severity, without behavioral disturbance, psychotic disturbance, mood disturbance, and anxiety; J44.9 Chronic obstructive pulmonary disease, unspecified; E11.9 Type 2 diabetes mellitus without complications; E78.5 Hyperlipidemia, unspecified; Z66 Do not resuscitate; E86.0 Dehydration; I48.0 Paroxysmal atrial fibrillation; F41.8 Other specified anxiety disorders; G40.909 Epilepsy, unspecified, not intractable, without status epilepticus; K21.9 Gastro-esophageal reflux disease without esophagitis; Z95.5 Presence of coronary angioplasty implant and graft